=== PATIENT | female | born 1950 | race Caucasian/White ===

== ENCOUNTER 2019-04-20 07:00 | Emergency (ER) | payer MEDICARE, OTHER ==
[~2019-04-20] VITALS: Ht 170.2 cm; Wt 111.1 kg
[~2019-04-20 07:00] MED LIST: HYDR1TAB94; IBUP600; Multiple Vitam1 EAC1; SERT50 PO
[2019-04-20 07:27] LABS: BASOPHILS ABSOLUTE AUTO 0.04 K/mm3 (0.00-0.23); BASOPHILS PERCENT AUTO 1 % (0-2); EOSINOPHILS ABSOLUTE AUTO 0.14 K/mm3 (0.00-0.68); EOSINOPHILS PERCENT AUTO 3 % (0-6); Hematocrit 35.7 % (33.0-51.0); Hemoglobin 12.2 g/dL (11.5-16.0); IMMATURE GRAN ABSOLUTE AUTO 0.01 K/mm3 (0.00-0.10); IMMATURE GRAN PERCENT AUTO 0 % (0-1); LYMPHOCYTES ABSOLUTE AUTO 0.86 K/mm3 (0.84-5.20); LYMPHOCYTES PERCENT AUTO 20 % (21-46); MONOCYTES ABSOLUTE AUTO 0.53 K/mm3 (0.16-1.47); MONOCYTES PERCENT AUTO 13 % (4-13); Mean Corpuscular HGB 34.7 pg (26.0-34.0); Mean Corpuscular HGB Conc 34.2 g/dL (31.5-36.5); NEUTROPHILS ABSOLUTE AUTO 2.63 K/mm3 (1.96-9.15); NEUTROPHILS PERCENT AUTO 63 % (41-73); Platelet Count 207 K/mm3 (150-400); Red Blood Cell Count 3.52 M/mm3 (3.80-5.20); White Blood Cell Count 4.21 K/mm3 (4.00-11.30)
[2019-04-20 07:28] LABS: Mean Corpuscular Volume 101 fL (80-100)
[2019-04-20] MEDS ORDERED: Hydrochloroth12.5 MG PO (07:31)
[2019-04-20] MEDS ORDERED: LOSARTAN POTAS100 MG PO (07:31)
[2019-04-20] MEDS ORDERED: LETR2.5 PO (07:31)
[2019-04-20] MEDS ORDERED: VENL37.5ER PO (07:31)
[2019-04-20 08:02] LABS: Troponin I <0.015 ng/mL (0.000-0.040)
[2019-04-20 08:03] LABS: Alanine Aminotransfer (ALT/SGP 34 U/L (12-78); Albumin, Blood 3.8 g/dL (3.4-5.0); Albumin/Globulin Ratio 1.2 (0.8-1.8); Alk Phos 132 U/L (50-136); Anion Gap 6 mmol/L (6-16); Aspartate Aminotrans (AST/SGOT 28 U/L (12-37); Bilirubin, Total 0.9 mg/dL (0.1-1.0); Blood Urea Nitrogen 13 mg/dL (8-24); Bun/Creatinine Ratio 16.3 (12.0-20.0); CO2, Blood 28 mmol/L (21-32); Chloride, Blood 105 mmol/L (98-108); Globulin, Blood 3.3 g/dL (2.2-4.0); Glomerular Filtration Rate >60 (60-); Glucose, Blood 140 mg/dL (70-99); Potassium, Blood 3.5 mmol/L (3.5-5.5); Sodium, Blood 139 mmol/L (136-145); Total Protein, Blood 7.1 g/dL (6.4-8.2)
== END 2019-04-20 08:36 | disposition home or self-care (01) ==
LOC: ER 07:00
PROVIDERS: Emergency Medicine
DX: F41.9 Anxiety disorder, unspecified (principal); R07.89 Other chest pain; Z79.899 Other long term (current) drug therapy; Z85.3 Personal history of malignant neoplasm of breast
CPT/HCPCS: 36415; 71046; 80053; 84484; 85025; 93005; 93010; 99285-25

== ENCOUNTER → 2020-11-14 | Outpatient (CLI) | payer MEDICARE, OTHER ==
[~2020-11-14] MED LIST changes: +ACET500; +ARIP10 PO; +HYDCHL25 PO; +Hydrochloroth12.5 MG PO; +LETR2.5 PO; +LOSA50 PO; +LOSARTAN POTAS100 MG PO; +MONT10T PO; +OMEP20ER PO; +ONDA4ODT MM; +SULFAMETHOXAZO1 EAC1 PO; +SULTRIDS PO; +VENL150ER PO; +VENL37.5ER PO; +VENL75ER PO
== END | disposition home or self-care (01) ==
LOC: LAB 11:30 → LAB SHORT 11:30
DX: R10.9 Unspecified abdominal pain (principal)
CPT/HCPCS: 87086

== ENCOUNTER 2020-11-20 14:59 | Inpatient (IN) | payer MEDICARE, OTHER ==
[~2020-11-20] VITALS: Ht 170.2 cm; Wt 119.6 kg
[~2020-11-20 14:59] MED LIST changes: -ACET500; -ARIP10 PO; -HYDCHL25 PO; -LOSA50 PO; -MONT10T PO; -OMEP20ER PO; -ONDA4ODT MM; -SULFAMETHOXAZO1 EAC1 PO; -SULTRIDS PO; -VENL150ER PO; -VENL75ER PO
[2020-11-20 16:06] LABS: BASOPHILS ABSOLUTE AUTO 0.03 K/mm3 (0.00-0.23); BASOPHILS PERCENT AUTO 0 % (0-2); EOSINOPHILS ABSOLUTE AUTO 0.16 K/mm3 (0.00-0.68); EOSINOPHILS PERCENT AUTO 1 % (0-6); Hematocrit 35.5 % (33.0-51.0); Hemoglobin 12.7 g/dL (11.5-16.0); IMMATURE GRAN ABSOLUTE AUTO 0.14 K/mm3 (0.00-0.10); IMMATURE GRAN PERCENT AUTO 1 % (0-1); LYMPHOCYTES ABSOLUTE AUTO 0.25 K/mm3 (0.84-5.20); LYMPHOCYTES PERCENT AUTO 2 % (21-46); MONOCYTES ABSOLUTE AUTO 1.13 K/mm3 (0.16-1.47); MONOCYTES PERCENT AUTO 8 % (4-13); Mean Corpuscular HGB 32.1 pg (26.0-34.0); Mean Corpuscular HGB Conc 35.8 g/dL (31.5-36.5); Mean Corpuscular Volume 90 fL (80-100); Mean Platelet Volume 10.6 fL (9.1-12.4); NEUTROPHILS ABSOLUTE AUTO 13.45 K/mm3 (1.96-9.15); NEUTROPHILS PERCENT AUTO 89 % (41-73); Platelet Count 231 K/mm3 (150-400); RDW Coefficient Variation 15.9 % (11.7-14.2); Red Blood Cell Count 3.96 M/mm3 (3.80-5.20); White Blood Cell Count 15.16 K/mm3 (4.00-11.30)
[2020-11-20] MEDS ORDERED: OMEP20ER PO (16:06)
[2020-11-20] MEDS ORDERED: ONDA4ODT MM (16:06)
[2020-11-20] MEDS ORDERED: VENL75ER PO (16:06)
[2020-11-20] MEDS ORDERED: HYDCHL25 PO (16:07)
[2020-11-20] MEDS ORDERED: LOSA50 PO (16:08)
[2020-11-20] MEDS ORDERED: ACET500 (16:08)
[2020-11-20] MEDS ORDERED: SULTRIDS PO (16:09)
[2020-11-20] MEDS ORDERED: VENL150ER PO (16:09)
[2020-11-20] MEDS ORDERED: MONT10T PO (16:11)
[2020-11-20 16:41] LABS: Source, Urine Voided
[2020-11-20 16:43] LABS: Albumin, Blood 2.3 g/dL (3.4-5.0); Albumin/Globulin Ratio 0.7 (0.8-1.8); Bun/Creatinine Ratio 13.2 (12.0-20.0); Calcium, Blood 6.4 mg/dL (8.5-10.1); Creatinine, Blood 5.46 mg/dL (0.40-1.00); Globulin, Blood 3.4 g/dL (2.2-4.0); Total Protein, Blood 5.7 g/dL (6.4-8.2)
[2020-11-20 16:47] LABS: Magnesium, Blood 2.5 mg/dL (1.6-2.4); Troponin I 0.022 ng/mL (0.000-0.040)
[2020-11-20 16:50] LABS: Thyroid Stimulating Hormone 2.32 uIU/mL (0.360-4.800)
[2020-11-20 16:52] LABS: Appearance, Urine Hazy (Clear); Blood, Urine 3+ (Neg); Color, Urine Amber (P-Yellow); Glucose Qualitative, Urine 1+ (Neg); Ketones, Urine 1+ (Neg); Leukocyte Esterase, Urine 1+ (Neg); Nitrite, Urine Pos (Neg); Protein, Urine 3+ (Neg); Specific Gravity, Urine 1.025 (1.003-1.022); Urobilinogen, Urine 3+ (Normal)
[2020-11-20 17:13] LABS: Bilirubin, Urine 2+ (Neg)
[2020-11-20 17:16] LABS: Bacteria Mod /hpf; Hyaline Casts 0-2 /lpf (0-2); Squamous Epithelial Cells Mod /hpf (Few)
[2020-11-20 17:17] LABS: Amorphous Light (0-Heavy)
[2020-11-20 18:19] LABS: International Normalized Ratio 1.98; Prothrombin Time Results 20.4 Sec (9.7-11.5)
[2020-11-20 18:34] LABS: Influenza A, PCR NEGATIVE (NEGATIVE); Influenza B, PCR NEGATIVE (NEGATIVE); Resp Syncytial Virus, PCR NEGATIVE (NEGATIVE); SARS-Cov-2 (COVID-19) PCR, MMC NEGATIVE (NEGATIVE)
--- NOTE | 2020-11-20 19:00 | NUR ---
ADMIT/ASSESSMENT PT ARRIVED FROM ER VIA GURNEY. TRANSFERED BY STAFF WITH SLIDER SHEET TO BED. PT AWAKE, A&O. FORGETFUL AT TIMES. SPEECH CLEAR AND APPROP. SONS TO BEDSIDE. LUNGS CLEAR BUT DECREASED ON 3 LITER VIA NC. RESP EVEN AND NONLABORED. DENIES COUGH. SOB NOTED WITH SPEECH AND MOVEMENT. HEART RATE REGULAR IN THE 80'S. PT ON LEVOPHED ON STANDBY AT THIS TIME. BT+ HYPOACTIVE. DENIES N/V. 1+ EDEMA TO BILAT LOWER EXT. MEDIPORT TO RIGHT CHEST FLUSHED WITHOUT DIFFICULTY. D5 WITH NA BICARB AT 100 ML/HR.
[2020-11-20] MEDS ORDERED: SULFAMETHOXAZO1 EAC1 PO (19:28)
[2020-11-20] MEDS ORDERED: ARIP10 PO (19:29)
--- NOTE | 2020-11-20 20:25 | NUR ---
LABS LACTIC ACID 7.2, DR PAINTING NOTIFIED AT THIS TIME NO NEW ORDERS.
[2020-11-20 22:06] LABS: Source, Urine Catheter
--- NOTE | 2020-11-20 22:07 | NUR ---
BALL CATH BLADDER SCAN DONE, 348 ML IN BLADDER. PT TRIED TO USE BEDPAN WITHOUT RESULTS. TEMP BALL CATH 16 FR PLACED. NIKIA/TEA COLORED URINE DRAINING. URINE SENT TO LAB.
[2020-11-20 22:15] LABS: Appearance, Urine Hazy (Clear); Blood, Urine 4+ (Neg); Color, Urine Amber (P-Yellow); Glucose Qualitative, Urine 2+ (Neg); Ketones, Urine 1+ (Neg); Leukocyte Esterase, Urine 1+ (Neg); Nitrite, Urine Pos (Neg); Protein, Urine 3+ (Neg); Specific Gravity, Urine 1.025 (1.003-1.022); Urobilinogen, Urine 3+ (Normal)
[2020-11-20 22:23] LABS: Bilirubin, Urine 2+ (Neg)
[2020-11-20 22:24] LABS: Bacteria Mod /hpf; Mucus Mod (0-Heavy); Red Blood Cells, Urine 0-2 /hpf (0-2); Squamous Epithelial Cells Few /hpf (Few)
[2020-11-20 22:25] LABS: Transitional Epithelial Cells Few /hpf (0-Rare)
--- NOTE | 2020-11-21 02:45 | NUR ---
CALL TO MD CALL TO DR CERDA DUE TO POOR URINE OUTPUT 129ML SINCE 2199. NO ORDERS AT THIS TIME. WILL DRAW AM LABS AT THIS TIME AND CALL WITH RESULTS.
[2020-11-21 03:01] LABS: Hematocrit 32.9 % (33.0-51.0); Hemoglobin 11.8 g/dL (11.5-16.0); Mean Corpuscular HGB 31.6 pg (26.0-34.0); Mean Corpuscular HGB Conc 35.9 g/dL (31.5-36.5); Mean Corpuscular Volume 88 fL (80-100); Mean Platelet Volume 10.4 fL (9.1-12.4); NRBC ABSOLUTE 0.02 K/mm3 (0.00-0.02); NRBC Auto 0.1 /100 WBC (0.0-0.2); Platelet Count 194 K/mm3 (150-400); RDW Coefficient Variation 15.5 % (11.7-14.2); RDW Standard Deviation 48.5 fL (35.1-46.3); Red Blood Cell Count 3.73 M/mm3 (3.80-5.20); White Blood Cell Count 22.04 K/mm3 (4.00-11.30)
[2020-11-21 03:19] LABS: BAND PERCENT MAN 26 % (0-8); BASOPHILS ABSOLUTE MAN 0.22 K/mm3 (0.00-0.23); BASOPHILS PERCENT MAN 1 % (0-2); EOSINOPHILS ABSOLUTE MAN 0.66 K/mm3 (0.00-0.68); EOSINOPHILS PERCENT MAN 3 % (0-6); LYMPHOCYTES ABSOLUTE MAN 0.44 K/mm3 (0.84-5.20); LYMPHOCYTES PERCENT MAN 2 % (21-46); MONOCYTES ABSOLUTE MAN 0.44 K/mm3 (0.16-1.47); MONOCYTES PERCENT MAN 2 % (4-13); NEUTROPHILS ABSOLUTE MAN 20.27 K/mm3 (1.96-9.15); SEG NEUTROPHILS PERCENT MAN 66 % (41-73); TOTAL CELLS COUNTED 100
[2020-11-21 03:36] LABS: Albumin, Blood 2.5 g/dL (3.4-5.0); Albumin/Globulin Ratio 0.8 (0.8-1.8); Bilirubin, Total 2.2 mg/dL (0.1-1.0); Bun/Creatinine Ratio 12.6 (12.0-20.0); Calcium, Blood 5.6 mg/dL (8.5-10.1); Creatinine, Blood 5.49 mg/dL (0.40-1.00); Potassium, Blood 3.8 mmol/L (3.5-5.5); Total Protein, Blood 5.5 g/dL (6.4-8.2)
--- NOTE | 2020-11-21 03:47 | NUR ---
CALL TO MD CALL TO DR CERDA WITH AM LABS, CA CRITICAL AT 5.6. CONT NO URINE OUTPUT REVIEWED WITH DR CERDA. ORDERS OBTAINED.
--- NOTE | 2020-11-21 04:35 | NUR ---
IV MEDS NS 500 ML FLUID BOLUS COMPLETE. MIRLANDE GLUCONATE INFUSING. NA BICARB RESTARTED AFTER BOLUS COMPLETE. PT RESTING QUIETLY.
--- NOTE | 2020-11-21 05:52 | NUR ---
SHIFT SUMMARY PT RESTING QUIETLY. LEVOPHED UP TO 8 MCQ/MIN TO KEEP MAP GREATER THAN 65. FLUID BOLUS GIVEN FOR POOR URINE OUTPUT. CALCIUM GLUCONATE GIVE FOR CRITICAL CALCIUM OF 5.6. LACTIC ACID DOWN TO 3.6. REVIEWED LABS WITH DR CERDA. WILL REDRAW BMP AT 0700. PT ON 3 LITER O2 VIA NC. BALL CATH PLACED DURING THE NIGHT DUE TO RETENSION AND NEED TO HAVE STRICT I&O. REPORT TO ON COMING NURSE
--- NOTE | 2020-11-21 07:27 | NUR ---
ASSUMED CARE: PT RESTING IN BED ON 3LNC. NSR ON TELE WITH LEVOPHED GTT RUNNING THROUGH [employer] AT 8MCG/MIN. BICARB GTT RUNNING AT THIS TIME. BALL IN PLACE WITH TEA COLORED URINE. NO ACUTE NEEDS AT THIS TIME.
[2020-11-21 09:15] LABS: Bun/Creatinine Ratio 12.5 (12.0-20.0); Creatinine, Blood 5.59 mg/dL (0.40-1.00); Potassium, Blood 3.4 mmol/L (3.5-5.5)
[2020-11-21 09:19] LABS: Calcium, Blood 5.7 mg/dL (8.5-10.1)
--- NOTE | 2020-11-21 09:35 | NUR ---
PATIENT CALLED STAFF INTO ROOM FOR REPOSITIONING AND RASH TO FACE AND NECK WAS NOTED TO BE WORSE. PT ALSO SOUNDS LIKE SHE HAS A WHEEZE IN UPPER AIRWAY. CALL TO DR ESPINOSA WHO INSTRUCTS FOR BENADRYL AND SOLUMEDROL. DOES NOT INSTRUCT TO HOLD DOSES OF ABX OR ANY OTHER MEDS BUT TO OBSERVE FURTHER
--- NOTE | 2020-11-21 12:11 | NUR ---
DR ESPINOSA CAME AND SPOKE WITH DR RODRIGUEZ ABOUT PT. DR RODRIGUEZ DID BEDSIDE EXAMINATION AND FOUND PT'S LEFT LEG TO BE SHINY AND SLIGHTLY MORE SWOLLEN THAN LEFT. GIVEN PT'S CANCER HISTORY DR RODRIGUEZ ORDERED VENOUS DOPPLERS. TECH AT BEDSIDE PERFORMING DOPPLERS AT THIS TIME. INSTRUCTED RN TO ADD ROCEPHIN AND LATEX TO PT'S ALLERGIES AFTER REVIEWING CHART. NO ACUTE NEEDS AT THIS TIME.
--- NOTE | 2020-11-21 13:14 | NUR ---
RADIOLOGY CALLED STATING PT'S CREATININE WAS TOO HIGH TO SAFELY PERFORM PE STUDY. CALL TO DR ESPINOSA TO MAKE HIM AWARE. SPOKE WITH DR RODRIGUEZ WHO ORDERS NEPHROLOGY. WILL CALL NEPHROLOGY WHEN THEY REOPEN THIS AFTERNOON.
--- NOTE | 2020-11-21 14:30 | NUR ---
PT'S SON ARRIVED AND WAS GIVEN UPDATE. DR RODRIGUEZ ENTERED ROOM AND SPOKE TO HIM WELL. MADE DR RODRIGUEZ AWARE OF PT'S RESPONSIVENESS TO FLUIDS INCLUDING URINE OUTPUT. DR INSTRUCTED FOR SECOND LITER BOLUS TO BE GIVEN WHICH IS INFUSING NOW. SON AND PT HAVE NO FURTHER QUESTIONS AT THIS TIME.
[2020-11-21 16:10] LABS: Magnesium, Blood 2.2 mg/dL (1.6-2.4); Uric Acid, Blood 15.3 mg/dL (2.6-6.0)
[2020-11-21 17:01] LABS: Bun/Creatinine Ratio 12.7 (12.0-20.0); Calcium, Blood 5.7 mg/dL (8.5-10.1); Creatinine, Blood 5.44 mg/dL (0.40-1.00); Phosphorus, Blood 5.9 mg/dL (2.5-4.9); Potassium, Blood 3.8 mmol/L (3.5-5.5)
--- NOTE | 2020-11-21 18:11 | NUR ---
Per admit trigger, I met with Viri to offer information about ACP. She told me she already has a completed advanced directive. She appeared quite tired and politely dismissive. I will remain available.
--- NOTE | 2020-11-21 18:48 | NUR ---
PT CALLED STAFF INTO ROOM FOR INCREASED ITCHING. UPON FURTHER EXAMINATION IT WAS NOTED THAT PT'S RASH TO HEAD AND NECK HAD GOTTEN WORSE, BRIGHTER RED, MORE HIVES AND REDNESS SPREAD TO ARMS. SPOKE WITH DR RODRIGUEZ WHO INSTRUCTED TO EXAMINE EQUIPMENT FOR LATEX DUE TO ALLERGY. BALL NOTED TO HAVE LATEX PER PACKAGING. NO REDNESS TO GROIN OR LEGS BUT BALL CHANGED TO LATEX FREE CATHETER. PT WAS LAYING FLAT FOR PROCEDURE AND WHEN HEAD WAS RAISED SHE SAID SHE FELT SHORT OF BREATH. RAISED HEAD OF BEAD INTO HIGH FOWLERS. SPOKE WITH DR RODRIGUEZ WHO REEXAMINED. LEVOPHED AT 3MCG/MIN AT THIS TIME. NC AT 4L AT THIS TIME.
--- NOTE | 2020-11-21 20:00 | NUR ---
ASSUMED CARE: PT IS ALERT, SOFT SPEECH W LIMITED VERBAL RESPONSE. PT ASKS FOR ICE WATER IT IS SOOTHING TO HER THROAT, STATES THAT HER THROAT IS SORE AND HAS BEEN FOR A WHILE. LEVOPHED INCREASED, SEE FLOW SHEET. CONT W VERY MINIMAL URINE OUTPUT, WILL SEND SPECIMIN WHEN ENOUGH VOLUME. 4L NC, RR SL INCREASED, DENIES SOB, PAIN OR NAUSEA. STATES SHE ONLY HAS PAIN WHEN CLIMBING HER STAIRS, IN HER ABDOMEN. PT HAS GENERALISED "PUFFY" APPEARANCE, 2+ EDEMA OF LOWER EXTREM, HANDS LACKING SOME FINE MOTOR CONTROL, ABLE TO HOLD WATER CUP, BUT W SL DIFF RETURNING TO TRAY.
[2020-11-21 21:35] LABS: Source, Urine Catheter
[2020-11-21 21:45] LABS: Appearance, Urine Cloudy (Clear); Blood, Urine 5+ (Neg); Color, Urine Amber (P-Yellow); Glucose Qualitative, Urine 2+ (Neg); Ketones, Urine 1+ (Neg); Leukocyte Esterase, Urine 2+ (Neg); Nitrite, Urine Pos (Neg); Protein, Urine 3+ (Neg); Specific Gravity, Urine 1.025 (1.003-1.022); Urobilinogen, Urine 3+ (Normal)
[2020-11-21 21:50] LABS: Bilirubin, Urine 2+ (Neg)
[2020-11-21 21:51] LABS: Amorphous Heavy (0-Heavy); Bacteria Mod /hpf; Squamous Epithelial Cells Mod /hpf (Few); Transitional Epithelial Cells Few /hpf (0-Rare)
--- NOTE | 2020-11-22 01:00 | NUR ---
SEE CC FLOWSHEET: VASOPRESSIN ADDED APPROX 2100, LEVO HAS BEEN TIREATED TO 3MCG. DR RODRIGUEZ ALSO ORDERED MYCELEX TR, PT NOTED W WHITE PATCHES AT BACK OF THROAT. PT WAS EARLIER MED W BENADRYL FOR HIVES AND ITCHING, IMPROVED AT THIS TIME.
[2020-11-22 05:05] LABS: BASOPHILS ABSOLUTE AUTO 0.09 K/mm3 (0.00-0.23); BASOPHILS PERCENT AUTO 0 % (0-2); Hematocrit 34.6 % (33.0-51.0); Hemoglobin 12.6 g/dL (11.5-16.0); LYMPHOCYTES PERCENT AUTO 1 % (21-46); MONOCYTES ABSOLUTE AUTO 0.54 K/mm3 (0.16-1.47); MONOCYTES PERCENT AUTO 2 % (4-13); Mean Corpuscular HGB Conc 36.4 g/dL (31.5-36.5); Mean Corpuscular Volume 88 fL (80-100); Mean Platelet Volume 10.3 fL (9.1-12.4); NRBC ABSOLUTE 0.06 K/mm3 (0.00-0.02); NRBC Auto 0.2 /100 WBC (0.0-0.2); Platelet Count 191 K/mm3 (150-400); RDW Coefficient Variation 15.9 % (11.7-14.2); RDW Standard Deviation 48.3 fL (35.1-46.3); Red Blood Cell Count 3.94 M/mm3 (3.80-5.20); White Blood Cell Count 27.72 K/mm3 (4.00-11.30)
[2020-11-22 05:06] LABS: EOSINOPHILS ABSOLUTE AUTO 0.09 K/mm3 (0.00-0.68); EOSINOPHILS PERCENT AUTO 0 % (0-6); IMMATURE GRAN ABSOLUTE AUTO 0.43 K/mm3 (0.00-0.10); IMMATURE GRAN PERCENT AUTO 2 % (0-1); NEUTROPHILS ABSOLUTE AUTO 26.17 K/mm3 (1.96-9.15); NEUTROPHILS PERCENT AUTO 95 % (41-73)
[2020-11-22 05:30] LABS: BAND PERCENT MAN 22 % (0-8); BASOPHILS PERCENT MAN 0 % (0-2); EOSINOPHILS ABSOLUTE MAN 0.55 K/mm3 (0.00-0.68); EOSINOPHILS PERCENT MAN 2 % (0-6); MONOCYTES PERCENT MAN 0 % (4-13); NEUTROPHILS ABSOLUTE MAN 27.16 K/mm3 (1.96-9.15); SEG NEUTROPHILS PERCENT MAN 76 % (41-73); TOTAL CELLS COUNTED 100
[2020-11-22 05:45] LABS: Magnesium, Blood 2.1 mg/dL (1.6-2.4); Thyroid Stimulating Hormone 0.802 uIU/mL (0.360-4.800)
[2020-11-22 05:48] LABS: Albumin, Blood 2.3 g/dL (3.4-5.0); Albumin/Globulin Ratio 0.8 (0.8-1.8); Bilirubin, Total 2.4 mg/dL (0.1-1.0); Bun/Creatinine Ratio 13.3 (12.0-20.0); Calcium, Blood 5.6 mg/dL (8.5-10.1); Creatinine, Blood 5.62 mg/dL (0.40-1.00); Phosphorus, Blood 6.8 mg/dL (2.5-4.9); Potassium, Blood 3.9 mmol/L (3.5-5.5); Total Protein, Blood 5.3 g/dL (6.4-8.2)
--- NOTE | 2020-11-22 06:00 | NUR ---
PT STATES SHE HAS RESTED, BUT SEEMS TO REST W FURROWED BROW. MENTATION SEEMS SL "FOGGY", BUT W SOME CONSIDERATION, IS ABLE TO GIVE CORRECT ANSWERS. PT ASKED IF SHE WAS GOING TO MAKE IT HOME. PT SON REYNA CALLED FROM [place], STATES HE WILL BE COMING DOWN FRIDAY MORNING. SEE FLOW SHEET, CONT W LEVO AT 3MCG AND VASOPRESSIN. HAS MADE SOME URINE TONOC, BROWN. WILL REPORT TO DAYS.
--- NOTE | 2020-11-22 08:10 | NUR ---
INITIAL ASSESSMENT PATIENT RESTING QUIETLY IN BED UPON ENTERING. PATIENT ORIENTED TO SELF, [facility], FAMILY AND FOLLOWING COMMANDS. PATIENT DISORIENTED TO YEAR (THOUGHT IT WAS IN THE 1900S) AND MONTH. PATIENT UNSURE HOW TO DRINK OUT OF A STRAW THIS AM. PATIENT SEEMS TO BE HAVING DIFFICULTY WITH MAKING SENTENCES AND HAS NONSENSICAL SPEECH AT TIMES. PATIENT ANXIOUS AT TIMES. PATIENT REPORTS N/T IN EXTREMITIES SINCE SHE STARTED CHEMO. PATIENT WEAK BUT ABLE TO MOVE ALL EXTREMITIES. PATIENT AFEBRILE. PATIENT SATTING 90% AND GREATER ON 3 L NC. INSPIRATORY CRACKLES NOTED IN UPPER LUNG LOBES. LOWER LOBES DIMINISHED TO AUSCULTATION. PATIENT SOB WITH EXERTION AND EVEN WITH SPEAKING. PATIENT IN SR WITH PACS. HR 80S TO 90S. SBP 90S TO 120S. LOWER EXTREMITIES EDEMATOUS. ABDOMEN MODERATELY DISTENDED, FIRM, WITH HYPOACTIVE BS NOTED. DATE OF LAST BM UNKNOWN. PATIENT OLIGURIC. BALL DRAINING MINIMAL AMOUNT OF NIKIA COLORED URINE. RASH NOTED TO MID TRUNK UP TO NECK AND ALSO NO HEAD. PATIENT BEING REPOSITIONED Q2H AND PRN. LEVOPHED INFUSING AT 3 MCG/ MINUTE, VASOPRESSIN AT 0.04 UNITS/ MINUTE AND NS AT 125 MLS/ HOUR. BED LOW, CALL LIGHT IN REACH. WILL CONTINUE TO MONITOR PATIENT FREQUENTLY THROUGHOUT SHIFT.
--- NOTE | 2020-11-22 09:00 | NUR ---
DR. RODRIGUEZ UPDATED ON PATIENT STATUS. INFORMED THAT WBCS INCREASING, CALCIUM CRITICALLY LOW AT 5.6, PHOS INCREASED AT 6.8, AND KIDNEY LABS INCREASING. INFORMED THAT PATIENT ONLY HAD OUT 120 MLS OF URINE ON TAG MARKER. INFORMED THAT PATIENT IS CONFUSED THIS AM AND THAT PATIENT EVEN HAVING TROUBLE TRYING TO FIGURE OUT HOW TO USE STRAW TO DRINK THIS AM. DOCTOR STATED SHE WOULD PUT ORDERS IN.
--- NOTE | 2020-11-22 12:00 | NUR ---
PATIENT AFEBRILE. HR IN THE 80S. SBP 60S TO 90S. PATIENT REMAINS ON LEVOPHED AND VASOPRESSIN. NO OTHER ACUTE CHANGES TO NOTE ON AT THIS TIME. WILL CONTINUE TO MONITOR.
[2020-11-22 13:23] LABS: Base Excess Venous -10.8 mmol/L; Bicarbonate Venous 16.8 mmol/L (24.0-30.0); PCO2 Venous 28.1 mmHg (38-42); PO2 Venous 54.8 mmHg (38-42); pH Blood Venous 7.34 (7.34-7.37)
[2020-11-22 13:45] LABS: Uric Acid, Blood 15.3 mg/dL (2.6-6.0)
[2020-11-22 13:52] LABS: Albumin, Blood 2.4 g/dL (3.4-5.0); Anion Gap 17 mmol/L (6-16); Blood Urea Nitrogen 76 mg/dL (8-24); Bun/Creatinine Ratio 13.2 (12.0-20.0); CO2, Blood 15 mmol/L (21-32); Calcium, Blood 5.7 mg/dL (8.5-10.1); Chloride, Blood 101 mmol/L (98-108); Creatinine, Blood 5.74 mg/dL (0.40-1.00); Glomerular Filtration Rate 8 (60-); Glucose, Blood 147 mg/dL (70-99); Potassium, Blood 3.9 mmol/L (3.5-5.5); Sodium, Blood 133 mmol/L (136-145)
--- NOTE | 2020-11-22 14:50 | NUR ---
DR. GONG INFORMED OF CALCIUM AND REST OF RECENT LABS. INFORMED THAT PATIENT HAS ONLY HAD OUT 20 TO 40 CC OF URINE OUTPUT. ORDER RECEIVED FOR CALCIUM CHLORIDE.
--- NOTE | 2020-11-22 16:00 | NUR ---
PATIENT AFEBRILE. HR 80S TO 90S. SBP 80S TO LOW 100S. RASH IS GETTING WORSE. SON IN ROOM VISITING.
--- NOTE | 2020-11-22 16:45 | NUR ---
DR. RODRIGUEZ INFORMED THAT PATIENT HAS ONLY HAD 30 MLS OF URINE OUTPUT THIS SHIFT. ALSO INFORMED THAT RASH APPEARS TO BE GROWING. ORDER RECEIVED.
--- NOTE | 2020-11-22 16:46 | NUR ---
LEFT A MESSAGE ON DR. GONG'S PHONE TO INFORM HER OF PATIENT SCANT URINE OUTPUT. WILL WAIT FOR A RETURN CALL.
--- NOTE | 2020-11-22 18:06 | NUR ---
SPOKE WITH DR. GONG ABOUT URINE OUTPUT. INFORMED THAT BLADDER SCAN SHOWED 845 MLS OF URINE IN BLADDER. HOWEVER, INFORMED THAT ON ABD CT PATIENT HAD ASCITES NOTED. INFORMED THAT BALL IS FLUSHING WITH NO PROBLEM. NO FURTHER ORDERS RECEIVED.
--- NOTE | 2020-11-22 18:10 | NUR ---
DENNIS STEWART FLUSHED BALL CATHETER WITH 150 MLS OF NORMAL SALINE AND ALL 150 MLS WAS RETURNED WITHOUT DIFFICULTY.
--- NOTE | 2020-11-22 19:00 | NUR ---
ASSUMED CARE NOTE: ASSUMED CARE NOTE OF PT AT 1900, RECEVIED REPORT FROM BRET COLLINS. PT IS ALERT AND ORIENTED TO SELF, ABLE TO FOLLOW COMMANDS. PT IS CONFUSED, UNABLE TO STATE PLACE, TIME, EVENT OR RECALL RECENT/REMOTE EVENTS. PT IS ON 2L OF 02 VIA NC, SPO2 ABOVE 90% PT IS SR WITH HR IN THE 80S. PT ON LEVOPHED AT VASOPRESSIN TO MAINTAIN MAP ABOVE 65. PT IS EDEMATOUS T/O. RASH/REDNESS TO HEAD/CHEST/BACK/ UPPER ARMS NOTED. RED BLOTCHES TO ABDOMEN AND BUTTOCKS NOTED. BALL PATENT AND DRAINING TO GRAVITY, NIKIA COLOR URINE NOTED. WILL CONTINUE TO MONITOR PT T.O SHIFT.
--- NOTE | 2020-11-22 19:05 | NUR ---
Met with patient to reivew symptoms and spend theraputic time. Pt confussed and difficulty tracking conversation. She denies headache. yes to tight breathing but unable to express how it feels. denies nausea or pain. Physician want to be judicous with more sedatives. Mak is to continue treamtent and see response. Family in tomorrow with review code status.
--- NOTE | 2020-11-22 19:29 | NUR ---
SHIFT SUMMARY PATIENT REMAINED VERY CONFUSED THIS SHIFT. PATIENT HAD NONSENSICAL SPEECH AT TIMES. PATIENT REMAINED AFEBRILE. PATIENT REMAINED WEAK. PATIENT REMAINED SATTING 90% AND GREATER ON 3 L NC. PATIENT SOB WITH EXERTION, INCLUDING WITH TALKING AND WITH INCREASED ANXIETY. PATIENT REMAINED IN SR WITH PACS. HR 80S TO 90S. SBP 80S TO 120S. PATIENT HAD 500 CC NS BOLUS THIS SHIFT. BP LABILE ON PRESSORS. LEVOPHED REMAINED AT 3 MCG/ MINUTE. MAPS AROUND 80S WHEN ON VASOPRESSIN AND 40S TO 50S OFF OF VASOPRESSIN. NO BM THIS SHIFT. PATIENT PLACED ON PUREE DIET WITH NECTAR THICK LIQUIDS BY SPEECH THERAPY. PATIENT ONLY HAD 35 MLS OF NIKIA COLORED URINE OUT THIS SHIFT. DR. RODRIGUEZ AND DR. GONG BOTH AWARE. RASH INCREASED IN SIZE THIS SHIFT. AREAS ARE OUTLINED WITH MARKER. PATIENT HAD HEAD CT THIS SHIFT. PATIENT RECEIVED CALCIUM CHLORIDE REPLACEMENT FOR CRITICALLY LOW CALCIUM. HEPARIN AND CIPRO DC'D THIS SHIFT IN CASE THEY ARE POTENTIAL CAUSE OF RASH. FAMILY, DOCTOR, PRIMARY CARE NURSE AND PALLIATIVE CARE NURSE TO HAVE MEETING IN PATIENT ROOM AT 1400 TOMORROW TO DISCUSS FUTURE CARE. PATIENT APPEARS WITHOUT PAIN OR DISTRESS AT THIS TIME. BED LOW, CALL LIGHT IN REACH. REPORT HAS BEEN GIVEN TO ASSUMING CHIPPER FEEDER NURSE.
[2020-11-22 23:20] LABS: Source, Urine Catheter
[2020-11-22 23:25] LABS: Appearance, Urine Cloudy (Clear); Blood, Urine 5+ (Neg); Color, Urine Amber (P-Yellow); Glucose Qualitative, Urine 1+ (Neg); Ketones, Urine 2+ (Neg); Leukocyte Esterase, Urine 3+ (Neg); Nitrite, Urine Pos (Neg); Protein, Urine 3+ (Neg); Specific Gravity, Urine 1.025 (1.003-1.022); Urobilinogen, Urine 3+ (Normal)
[2020-11-22 23:26] LABS: Bilirubin, Urine 2+ (Neg)
[2020-11-22 23:31] LABS: White Blood Cells, Urine 25-50 /hpf (0-5)
[2020-11-22 23:32] LABS: Amorphous Light (0-Heavy); Bacteria Many /hpf; Squamous Epithelial Cells Few /hpf (Few); Yeast/Fungi Urine Mod /hpf
[2020-11-22 23:33] LABS: Granular Casts 0-2 /lpf (0); Transitional Epithelial Cells Few /hpf (0-Rare)
[2020-11-23 03:50] LABS: Hematocrit 32.7 % (33.0-51.0); Hemoglobin 11.9 g/dL (11.5-16.0); Mean Corpuscular HGB 32.2 pg (26.0-34.0); Mean Corpuscular HGB Conc 36.4 g/dL (31.5-36.5); Mean Corpuscular Volume 89 fL (80-100); Mean Platelet Volume 10.4 fL (9.1-12.4); NRBC ABSOLUTE 0.11 K/mm3 (0.00-0.02); NRBC Auto 0.4 /100 WBC (0.0-0.2); Platelet Count 182 K/mm3 (150-400); RDW Coefficient Variation 15.9 % (11.7-14.2); Red Blood Cell Count 3.69 M/mm3 (3.80-5.20); White Blood Cell Count 26.98 K/mm3 (4.00-11.30)
[2020-11-23 04:21] LABS: Alanine Aminotransfer (ALT/SGP 562 U/L (12-78); Albumin, Blood 2.3 g/dL (3.4-5.0); Albumin/Globulin Ratio 0.8 (0.8-1.8); Alk Phos 467 U/L (50-136); Anion Gap 15 mmol/L (6-16); Aspartate Aminotrans (AST/SGOT 531 U/L (12-37); Bilirubin, Direct 2.3 mg/dL (0.0-0.3); Bilirubin, Indirect 0.8 mg/dL (0.1-0.7); Bilirubin, Total 3.1 mg/dL (0.1-1.0); Blood Urea Nitrogen 86 mg/dL (8-24); Bun/Creatinine Ratio 14.2 (12.0-20.0); CO2, Blood 16 mmol/L (21-32); Calcium, Blood 6.4 mg/dL (8.5-10.1); Chloride, Blood 104 mmol/L (98-108); Creatinine, Blood 6.06 mg/dL (0.40-1.00); Globulin, Blood 2.9 g/dL (2.2-4.0); Glomerular Filtration Rate 7 (60-); Glucose, Blood 119 mg/dL (70-99); Magnesium, Blood 2.1 mg/dL (1.6-2.4); Phosphorus, Blood 7.4 mg/dL (2.5-4.9); Potassium, Blood 3.9 mmol/L (3.5-5.5); Sodium, Blood 135 mmol/L (136-145); Total Protein, Blood 5.2 g/dL (6.4-8.2); Uric Acid, Blood 15.1 mg/dL (2.6-6.0)
[2020-11-23 04:27] LABS: CPK Creatine Kinase 1431 U/L (26-193)
[2020-11-23 05:38] LABS: BAND PERCENT MAN 19 % (0-8); BASOPHILS ABSOLUTE MAN 0.26 K/mm3 (0.00-0.23); BASOPHILS PERCENT MAN 1 % (0-2); EOSINOPHILS PERCENT MAN 0 % (0-6); LYMPHOCYTES ABSOLUTE MAN 0.26 K/mm3 (0.84-5.20); LYMPHOCYTES PERCENT MAN 1 % (21-46); MONOCYTES ABSOLUTE MAN 0.26 K/mm3 (0.16-1.47); MONOCYTES PERCENT MAN 1 % (4-13); NEUTROPHILS ABSOLUTE MAN 26.17 K/mm3 (1.96-9.15); SEG NEUTROPHILS PERCENT MAN 78 % (41-73); TOTAL CELLS COUNTED 100
--- NOTE | 2020-11-23 06:11 | NUR ---
SHIFT SUMMARY : PT IS ALERT AND ORIENTED TO SELF. CONTINUES TO BE CONFUSED, HOWEVER IS REDIRECTABLE. PT RASH HAS IMPROVED, LESS REDNESS NOTED AFTER BENADRYL. PT RECEVIED ONCE TREATMENT OF ALBUTEROL FROM WHEEZING IN THE LOWER BASES. PT RR WITH INCREASE WITH AGITATION. PT IS UNABLE TO GET COMFORTABLE AND WILL BEGIN TO SCRATCH, SHE NEEDS TO BE REMINDED NOT TO SCRATCH RASH. ONCE SETTLED PT RR GOES BACK TO NORMAL. PT ON RA WITH SPO2 ABOVE 90% PT HAS BLISTERS IN MOUTH AND WHITE PATCHES. PT IS GIVEN ORAL CARE NEEDED, HOWEVER SHE WILL FIGHT CARE, C/O PAIN. PT HAS BEEN OFF/ON LEVOPHED AND VASOPRESSIN T/O NIGHT. PT HAS BEEN IN NSR WITH HR IN THE 90'S . BALL PATENT, DRAINING NIKIA COLORED URINE, UA SENT TO LAB, CATH CARE PROVIDED. WILL CONTINUE TO MONITOR PT UNTIL REPORT IS GIVEN TO ONCOMING SHIFT.
--- NOTE | 2020-11-23 08:10 | NUR ---
INITIAL ASSESSMENT PATIENT CONFUSED THIS AM. PATIENT HAS NONSENSICAL SPEECH. PATIENT ANXIOUS. PATIENT IS ABLE TO FOLLOW SOME SIMPLE COMMANDS ON AND OFF. PATIENT AFEBRILE. PATIENT DENIES PAIN AT THIS TIME. SCLERA REDDENED. PATIENT WEAK BUT ABLE TO MOVE ALL EXTREMITIES. PATIENT HAS INCREASE IN INVOLUNTARY MUSCLE MOVEMENTS FROM YESTERDAY. PATIENT SATTING 90% AND GREATER ON 3 L NC. CRACKLES NOTED IN LLL; ALL OTHER LUNG LOBES DIMINISHED THROUGHOUT. SOB NOTED WITH EXERTION. BREATHING LABORED. RRS 20S TO 30S. PATIENT IN SR WITH PACS. HR IN THE 90S. SBP 90S TO 150S. PATIENT RECEIVING SCHEDULED MIDODRINE. PATIENT EDEMATOUS. SCDS IN PLACE. ABD FIRM, MODERATELY DISTENDED, HYPOACTIVE BS NOTED. DATE OF LAST BM UNKNOWN. PATIENT OLIGURIC. SCANT AMOUNT OF NIKIA COLORED URINE DRAINING FROM BALL; SEDIMENT NOTED. RASH SCATTERED FROM TOP OF THIGHS ON BACKSIDE TO TOP OF HEAD. RASH DISTAL TO ELBOWS AND UP ARM. RASH JUST BELOW NIPPLE LINE AND EXTENDS UP NECK AND FACE. FACE FLUSHED. LEVOPHED AT 3 MCG/ MINUTE. VASOPRESSIN ON SB AT THIS TIME. NS AT 125 MLS/ HOUR. BED LOW, CALL LIGHT IN REACH. WILL CONTINUE TO MONITOR PATIENT FREQUENTLY THROUGHOUT SHIFT.
[2020-11-23 08:54] LABS: Vancomycin, Random 8.4 ug/mL
--- NOTE | 2020-11-23 09:00 | NUR ---
DR. RODRIGUEZ UPDATED ON PATIENT STATUS. INFORMED THAT PATIENT RECEIVED 2 G CALCIUM GLUCONATE THIS AM FOR CALCIUM LEVEL OF 6.4. INFORMED THAT KIDNEY LABS HAVE INCREASED. INFORMED THAT PATIENT HAD 150 MLS OF URINE OUT THIS SHIFT. INFORMED THAT PATIENT MORE CONFUSED TODAY THAN YESTERDAY AND THAT SHE HAS INCREASED INVOLUNTARY MOVEMENTS FROM YESTERDAY WELL. DOCTOR STATED THAT SHE WILL PLACE ORDERS.
[2020-11-23 10:18] LABS: PCO2 Arterial 26.3 mmHg (35-45); PO2 Arterial 73.3 mmHg (80-100); pH Blood Arterial 7.32 (7.35-7.45)
[2020-11-23 10:26] LABS: International Normalized Ratio 2.73; Prothrombin Time Results 27.6 Sec (9.7-11.5)
--- NOTE | 2020-11-23 13:01 | NUR ---
PATIENT AFEBRILE. PATIENT REMAINS CONFUSED. PATIENT ACCEPTED PO MIDODRINE BUT WOULD NOT OPEN MOUTH FOR MYCELEX; UNSURE WHETHER PATIENT REFUSING OR NOT UNDERSTANDING DIRECTION TO OPEN MOUTH. PATIENT REMAINS ON 3 L NC. HR 70S TO 90S. SBP 90S TO 120S. BLOOD SUGAR OF 113. PATIENT GIVEN PRN BENADRYL FOR RASH AND ITCHING. NO OTHER ACUTE CHANGES TO NOTE ON AT THIS TIME. WILL CONTINUE TO MONITOR.
--- NOTE | 2020-11-23 13:53 | NUR ---
DR. GONG IN TO SEE PATIENT. UPDATED ON STATUS. NO ORDERS RECEIVED AT THIS TIME.
--- NOTE | 2020-11-23 15:18 | NUR ---
MEETING IN PATIENT ROOM WITH PATIENT (WHO SLEPT THE WHOLE TIME), MIKA VARGAS, DR. RODRIGUEZ, PALLIATIVE CARE NURSE ALFONSO HERRERA, AND PRIMARY NURSE FROM 1400 TO 1500. FAMILY UPDATED AND QUESTIONS ANSWERED.
--- NOTE | 2020-11-23 16:00 | NUR ---
PATIENT AFEBRILE. NO SIGNS OF PAIN NOTED. PATIENT IS NO LONGER FOLLOWING ANY SIMPLE COMMANDS. PATIENT APPEARS TO BE UNABLE TO UNDERSTAND HOW TO OPEN MOUTH FOR MEDICATIONS AND SIPS. PATIENT APPEARS TO HAVE BITTEN LOWER LIP IN ONE SMALL SPOT. HR 70S TO 80S. SBP 90S TO 1-TEENS. NO OTHER ACUTE CHANGES TO NOTE ON AT THIS TIME. SONS REMAIN AT BEDSIDE. WILL CONTINUE TO MONITOR.
--- NOTE | 2020-11-23 16:43 | NUR ---
Joint supportive vist with Dr Block, Bedside RN Sandee, and this RN. Pt resting in bed with her eyes closed. Pt's sons at bedside. Dr Block provides update and discussed plan of care. Dr Block answers questions. This RN and Sandee remained behind and answered questions. Continued therapeutic listening. Answered questions regarding POA and the importance of planning for the future. Answered questions regarding caregiver support. Discussed regardless of outcome of current condition, Pt may need caregiver support when cancer reaches end stage. Continued therapeutic listening. Family expresses appreciation of visit and reports no other concerns at this time. Palliative Care will remain available for supportive and therapeutic visits.
--- NOTE | 2020-11-23 19:00 | NUR ---
ASSUMED CARE NOTE: ASSUMED CARE OF PT AT 1900, RECEVIED REPORT FROM BRET COLLINS. PT IS CONFUSED, AND AGITATED. NOT ABLE TO FOLLOW COMMANDS, VOICES SOME WORDS, MOSTLY JUST SOUNDS. UNABLE TO RECALL RECENT/REMOTE EVENTS. PT IS ON 4L OF O2 VIA NC, SPO2 ABOVE 90% RR AT 22 TO 30 WITH AGITATION. PT IS SCRATCHING SKIN, CONTINUES TO BE RED, AND RASH DOES NOT SEEM TO BE GROWING RAPIDLY. PT GIVEN BENADRYL PER ORDER. PT IN SINUS RYTHYM WITH FEW PVC'S, HR IN THE 80'S. BP STABLE. PT WILL REMAIN NPO T/O SHIFT, AND ORAL CARE WILL BE PROVIDED WITH SUCTION. BALL IS PATNET, DRAINING TO GRAVITY. WILL CONTINUE TO MONITOR PT T/O SHIFT.
--- NOTE | 2020-11-23 19:10 | NUR ---
SHIFT SUMMARY PATIENT CONFUSED THIS SHIFT. PATIENT ONLY MAKING SOUNDS WHEN TRYING TO TALK TO STAFF. PATIENT UNABLE TO FOLLOW ANY COMMANDS. PATIENT CONTINUES TO HAVE INVOLUNTARY MUSCLES SPASMS. PATIENT REMAINS WEAK. PATIENT ANXIOUS AT TIMES. PATIENT HAS REMAINED SATTING 90% AND GREATER ON 3 L NC. NONPRODUCTIVE COUGH. RRS 20S TO 40S. BREATHING LABORED AT TIMES. PATIENT REMAINED IN SR WITH PACS. HR 70S TO 90S. SBP 90S TO 150S. LEVOPHED AND VASOPRESSIN BOTH PLACED ON SB THIS SHIFT. MIDODRINE DOSE DECREASED THIS SHIFT, HOWEVER PATIENT IS NO LONGER ABLE TO TAKE PO MEDS. NO BM THIS SHIFT. BALL DRAINED 335 MLS OF NIKIA COLORED URINE WITH SEDIMENT NOTED. PATIENT RECEIVED TOTAL OF 100 MG LASIX THIS SHIFT. PATIENT REPOSITIONED THROUGHOUT SHIFT. PATIENT RECEIVED COMPLETE BEDBATH. NS REMAINS AT 125 MLS/ HOUR. PATIENT RECEIVED VANCO AND AZACTAM. BRYAN CONSULT PLACED. FAMILY MEETING IN ROOM AT 1400 WITH SONS, DOCTOR, PALLIATIVE CARE AND PRIMARY NURSE. BED LOW, CALL LIGHT IN REACH. REPORT HAS BEEN GIVEN TO ASSUMING BOARD MILL SUPERVISOR NURSE.
--- NOTE | 2020-11-23 23:54 | NUR ---
UPDATE: PT PLACED ON LEVOPHED 1MCG/MIN DUE TO LOW SBP OF 70, AND MAP OF 50.
--- NOTE | 2020-11-24 02:46 | NUR ---
CALLED REGARDING PT'S RESTLESSNESS. PT IS MOVING AROUND IN BED, MOANING. UNABLE TO REPOSTION PATIENT WITHTOUT HAVING HER RESIST OR TENSE UP. PT STRATCHING HER UPPER TORSO. ORDERS FOR ONE TIME DOSE OF FENTANYL GIVEN.
--- NOTE | 2020-11-24 03:03 | NUR ---
DC'd THE FENTANYL DUE TO LATEX ALLERGY. CALLED REGARDING CONTRAINDICATION, ORDERS FOR ONE TIME DOSE OF MORPHINE TO BE GIVEN.
[2020-11-24 03:41] LABS: BASOPHILS ABSOLUTE AUTO 0.03 K/mm3 (0.00-0.23); BASOPHILS PERCENT AUTO 0 % (0-2); EOSINOPHILS ABSOLUTE AUTO 0.03 K/mm3 (0.00-0.68); EOSINOPHILS PERCENT AUTO 0 % (0-6); Hematocrit 32.4 % (33.0-51.0); IMMATURE GRAN ABSOLUTE AUTO 0.15 K/mm3 (0.00-0.10); IMMATURE GRAN PERCENT AUTO 1 % (0-1); LYMPHOCYTES ABSOLUTE AUTO 0.68 K/mm3 (0.84-5.20); LYMPHOCYTES PERCENT AUTO 4 % (21-46); MONOCYTES ABSOLUTE AUTO 0.58 K/mm3 (0.16-1.47); MONOCYTES PERCENT AUTO 3 % (4-13); Mean Corpuscular HGB 31.7 pg (26.0-34.0); Mean Corpuscular Volume 86 fL (80-100); NEUTROPHILS ABSOLUTE AUTO 15.63 K/mm3 (1.96-9.15); NEUTROPHILS PERCENT AUTO 91 % (41-73); NRBC ABSOLUTE 0.08 K/mm3 (0.00-0.02); NRBC Auto 0.5 /100 WBC (0.0-0.2); Platelet Count 138 K/mm3 (150-400); RDW Coefficient Variation 16.5 % (11.7-14.2); RDW Standard Deviation 48.4 fL (35.1-46.3); Red Blood Cell Count 3.79 M/mm3 (3.80-5.20)
[2020-11-24 03:55] LABS: International Normalized Ratio 2.58; Prothrombin Time Results 26.2 Sec (9.7-11.5)
[2020-11-24 04:02] LABS: Anion Gap 14 mmol/L (6-16); Blood Urea Nitrogen 98 mg/dL (8-24); Bun/Creatinine Ratio 16.7 (12.0-20.0); CO2, Blood 15 mmol/L (21-32); Calcium, Blood 6.2 mg/dL (8.5-10.1); Chloride, Blood 107 mmol/L (98-108); Creatinine, Blood 5.86 mg/dL (0.40-1.00); Glomerular Filtration Rate 8 (60-); Glucose, Blood 123 mg/dL (70-99); Magnesium, Blood 2.3 mg/dL (1.6-2.4); Phosphorus, Blood 7.6 mg/dL (2.5-4.9); Potassium, Blood 3.9 mmol/L (3.5-5.5); Sodium, Blood 136 mmol/L (136-145); Vancomycin, Random 15.6 ug/mL
--- NOTE | 2020-11-24 06:08 | NUR ---
SHIFT SUMMARY: PT CONTINUES TO BE CONFUSED AND UNABLE TO FOLLOW COMMANDS. PT IS HAVING INVOLUNTARY JERKING MOVMENTS TO ALL EXTREMTIES. PT FIGHTS ORAL CARE AND WILL MOVE HEAD FROM SIDE TO SIDE. BLISTERS NOTED TO THE ORAL MUCOSA. PT IS ON 4L OF 02 VIA NC WITH SPO2 ABOVE 90% PT RR INCREASED WITH AGITATION IN THE 30'S WHILE AT REST RR IS IN THE MID TEENS TO 20. PT IS HAVING DRY-NON PRODUCTIVE COUGH OCCASSIONALLY. PT WAS ON LEVOPHED THIS SHIFT FOR A SHORT PERIOD OF TIME, DUE TO MAP BEING UNDER 65, AND SBP OF 70. PT BP HAS BEEN STABLE SINCE LEVOPHED WAS TURNED OFF. PT IN SR WITH PVC'S, HR IN THE 70-80'S. LOW URINE OUTPUT NOTED THIS SHIFT, BALL IS PATENT AND DRAINING TO GRAVITY. PT REPOSITIONED Q2HRS. RASH T/O BODY HAS NOT INCRESED. WILL CONTINUE TO MONITOR PT UNTIL REPORT IS GIVEN TO ONCOMING SHIFT.
--- NOTE | 2020-11-24 10:00 | NUR ---
AM NOTE... ASSUMED CARE OF PT AT 0700. PT HAS SEVERE ALTERED MENTAL STATUS, PT IS UNABLE TO FOLLOW COMMANDS, PT MOANS AND MAKES NONSENSICAL SOUNDS IN RESPONSE TO PAINFUL STIMULI. PT'S EXTREMITIES EXHIBIT JERKY TWITCHING MOVEMENTS. THE PT'S SKIN ON HER HEAD/FACE, UPPER TORSO AND ARMS IS RED WITH A FADING RASH NOTED FROM A PREVIOUS ALLERGIC REACTION PER NOC SHIFT RN. PT IS ON 3L NC WITH O2 SATS >90%, RR IS IN THE 20'S-30'S L/S DIM T/O WITH FINE CRACKLES NOTED IN THE LLL. PT IS IN SR W/PACs IN THE 80'S, BP STABLE. PT HAS 2+ PITTING EDEMA NOTED TO HER BLE AND 1+ TO HER BUE. BP IS CURRENTLY STABLE. ALL OF PT'S PO MEDICATIONS HELD D/T PT'S ALTERED MENTAL STATUS, PT IS NOT SAFE FOR PO INTAKE AT THIS TIME. PT IS UNABLE TO STATE HER NAME OR . PT'S BALL IS PATENT AND DRAINING DARK NIKIA URINE TO GRAVITY. PT HAS NOT HAD A CHARTED BM SINCE ADMIT. BT PRESENT AND HYPOACTIVE, ABD IS FIRM TO PALP. PT IS TO HAVE AN MRI OF THE HEAD TODAY. WILL CONTINUE TO MONITOR.
--- NOTE | 2020-11-24 15:20 | NUR ---
PT UPDATE... AT 1130 PT WAS TAKEN TO HAVE HER MRI BY THIS RN AND A MASK INSPECTOR, PT'S JERKS AND TWITCHES CONTINUED DURING THE MRI, ONCE THE MRI WAS OVER THE PT WAS TAKEN OUT OF THE MRI MACHINE AND IT WAS NOTED THAT SHE HAD A DUSKY APPEARANCE TO HER, THIS RN ATTEMPTED TO RUN INTO THE ROOM TO ASSESS THE PT BUT WAS TOLD I WAS NOT ALLOWED TO ENTER THE MRI ROOM. THE WORM PICKER BROUGHT THE PT OUT TO THIS RN WHO NOTED THAT HER RESPIRATORY RATE HAD GREATLY INCREASED, HER FACE WAS DUSKY WELL HER FINGERNAILS, PT'S O2 WAS AT 3L AND PT WAS LAYING FLAT ON THE MRI BED, THE HEAD OF THIS BED DOES NOT RAISE UP AT ALL, THIS RN INCREASED HER O2 HIGH IT WOULD GO AND CALLED FOR THE ICU TRAY DELIVERY AIDE TO COME AND ASSIST THIS RN AT THE MRI ROOM. PT WAS THEN GOTTEN BACK INTO HER BED AND THE HEAD OF THE BED WAS SAT UP, PT HAD BECOME MORE DUSKY DURING THIS TIME, IT WAS UNKNOWN WHAT HER O2 SATS/HR/BP WERE AT THIS TIME D/T ALL OF HER LEADS AND MONITORS HAVING TO HAVE BEEN REMOVED FOR THE MRI. ONCE THESE THINGS WERE BACK ON THE PT HER O2 SATS WERE >90%, BP WAS HYPERTENSIVE WITH SBP IN THE 180'S. AFTER APROX 1-2 MINS OF HER HEAD BEING UP WITH INCREASED O2 PT'S COLOR STARTED TO IMPROVE. THE ICU CHARGE NURSE ARRIVED AT MRI AND ASSISTED THIS RN IN GETTING THE PT BACK TO HER ROOM. ONCE BACK IN HER ROOM PT'S COLOR RETURNED TO HER NORMAL COLOR, RR DECREASED AND NAIL BEDS ALSO RETURNED TO NORMAL APPEARANCE. THE O2 WAS SLOWLY TITRATED DOWN TO 4L NC WITH O2 SATS>90%. WILL CONTINUE TO MONITOR.
--- NOTE | 2020-11-24 15:29 | NUR ---
PT UPDATE... PT'S SON AT THE BEDSIDE, DR. ECKERT WAS NOTIFIED OF THE SON AND THAT THE MRI RESULTS WERE IN. DR. ECKERT CAME TO THE BEDSIDE TO DISCUSS THE MRI RESULTS AND THE PLAN OF CARE WITH THE SON. PER THE SON HE WANTED TO KEEP THE PT A FULL CODE UNTIL THEY COULD MEET WITH HIS BROTHER TO DISCUSS IF THEY WANT TO CONTINUE WITH AGRESSIVE CARE OR NOT. PALLIATIVE CARE NOTIFIED OF THE FAMILY MEETING PLAN SET FOR TOMORROW 11/25 AT 1300. WILL CONTINUE TO MONITOR.
--- NOTE | 2020-11-24 18:46 | NUR ---
SHIFT SUMMARY... PT CONTINUES TO HAVE VERY JERKY/TWITCHY MOVEMENTS, IT IS ALSO NOTED THAT THE PT'S ANXIETY HAS INCREASED T/O THE SHIFT, ANY TIME THE PT IS REPOSITIONED/PULLED UP THE BED THE PT STARTS TO SQUIRM AROUND IN THE BED, RR INCREASES AND SHE BECOMES VERY RED/FLUSHED IN THE FACE AND UPPER TORSO, IT TAKES HER AT LEAST 10-15 MINS TO CALM DOWN FROM THESE INTERACTIONS. PT'S O2 SATS DROPPED TO THE LOW 90'S HIGH 80'S DURING THE 1800 REPOSITION. IT WAS ALSO NOTED THAT THE PT'S BP HAS STARTED TO TREND DOWN TO 70'S-90'S SYSTOLIC, HOWEVER HER MAPS HAVE BEEN >65 AT THIS TIME. PT'S BALL IS PATENT AND DRAINED 260MLS OF DARK NIKIA URINE. PT HAS NOT HAD A BM THIS SHIFT OR SINCE ADMIT, IT IS UNKNOWN WHEN HER LAST BM WAS, HOWEVER PT IS NPO AT THIS TIME AND FAMILY HAS A MEETING WITH DR. ECKERT AND PALLIATIVE CARE TOMORROW AT 1300 TO DISCUSS HER PLAN OF CARE OR POSSIBLE COMFORT CARE, PER DR. ECKERT IT IS OKAY TO WAIT UNTIL AFTER THE MEETING TO ESTABLISH A PLAN OF CARE IN REGARDS TO HER BOWEL CARE. PT'S SONS ARE ALSO MEETING WITH DR. GONG TOMORROW AT APROX 11 TO TALK ABOUT POSSIBLE DIALYSIS, IT IS OKAY PER PAVING RAMMER FOR BOTH SONS TO COME IN EARLY TO HAVE THESE MEETINGS. WILL CONTINUE TO MONITOR UNTIL REPORT IS GIVEN TO ONCOMING RN.
--- NOTE | 2020-11-24 21:54 | NUR ---
ASSUMED PT CARE FROM DENNIS WALLIS AT 1915 PT OBSERVED TO BE LYING IN BED WITH HI FLOW NC IN PLACE AT 4L; RESP RATE 20-30'S. PT MOANING AND GROANING. NONVERBAL AND NOT ABLE TO MAKE NEEDS KNOWN. SHE IS UNABLE TO MAKE DIRECT EYE CONTACT NOR UNDERSTAND COMMUNICATION. EYES ARE CONTINUOUSLY MOVING BACK AND FORTH AND SCANNING THE ROOM; HOWEVER, WITH MORE AND AN UPWARD GAZE THAN PURPOSEFUL MOVEMENT. APPEARS VERY ANXIOUS AND IN PAIN. CONTINUES TO GRAB AT LINES/TUBING AND BECOMES VERY ANXIOUS WITH ANY SORT OF MOVEMENT OR WHILE LYING FLAT. OXYGEN SATURATIONS >90%; HOWEVER, PT HAD AN EPISODE WHERE HER HR INCREASES TO 130-140'S, RESP RATE >30, AND OXYGEN SATURATIONS DROP TO 80'S. ORDERS OBTAINED FOR CPAP, DISCONTINUATION OF FLUIDS, AND FENTANYL 12.5-25MCG Q4HR PRN. PT APPEARED MORE RELAXED AFTER 12.5MCG DOSE OF FENTANYL WAS GIVEN, BUT IT WAS SHORT LIVED. SHE ONLY TOLERATED THE CPAP FOR A BRIEF PERIOD OF TIME AND THEN ALSO ATTEMPTED TO PULL CPAP MASK OFF ALSO. PT IS BACK TO HI FLOW NC WITH 5L OF OXYGEN AND APPEARS TO BE MAINTAINING OXYGEN SATURATIONS AT THIS TIME. WILL CONTINUE TO MONITOR. PLAN IS FOR FAMILY, PALLIATIVE CARE, AND BOTH CHIEF OF VITAL STATISTICS AND REGISTRAR ASSISTANT TO DISCUSS TREATMENT PLAN.
[2020-11-25 04:01] LABS: Base Excess Venous -20.8 mmol/L; Bicarbonate Venous 10.3 mmol/L (24.0-30.0); PCO2 Venous 29.1 mmHg (38-42); PO2 Venous 76.6 mmHg (38-42)
[2020-11-25 04:33] LABS: BASOPHILS ABSOLUTE AUTO 0.03 K/mm3 (0.00-0.23); BASOPHILS PERCENT AUTO 0 % (0-2); EOSINOPHILS ABSOLUTE AUTO 0.02 K/mm3 (0.00-0.68); EOSINOPHILS PERCENT AUTO 0 % (0-6); Hematocrit 34.7 % (33.0-51.0); IMMATURE GRAN ABSOLUTE AUTO 0.34 K/mm3 (0.00-0.10); IMMATURE GRAN PERCENT AUTO 3 % (0-1); LYMPHOCYTES ABSOLUTE AUTO 0.45 K/mm3 (0.84-5.20); LYMPHOCYTES PERCENT AUTO 4 % (21-46); MONOCYTES ABSOLUTE AUTO 0.69 K/mm3 (0.16-1.47); MONOCYTES PERCENT AUTO 6 % (4-13); Mean Corpuscular HGB 31.4 pg (26.0-34.0); Mean Corpuscular HGB Conc 34.6 g/dL (31.5-36.5); Mean Corpuscular Volume 91 fL (80-100); Mean Platelet Volume 10.7 fL (9.1-12.4); NEUTROPHILS PERCENT AUTO 88 % (41-73); NRBC ABSOLUTE 0.33 K/mm3 (0.00-0.02); NRBC Auto 2.7 /100 WBC (0.0-0.2); Platelet Count 125 K/mm3 (150-400); RDW Coefficient Variation 18.1 % (11.7-14.2); RDW Standard Deviation 55.2 fL (35.1-46.3); Red Blood Cell Count 3.82 M/mm3 (3.80-5.20); White Blood Cell Count 12.23 K/mm3 (4.00-11.30)
[2020-11-25 04:51] LABS: Anion Gap 19 mmol/L (6-16); Blood Urea Nitrogen 115 mg/dL (8-24); Bun/Creatinine Ratio 18.6 (12.0-20.0); CO2, Blood 11 mmol/L (21-32); Calcium, Blood 6.3 mg/dL (8.5-10.1); Chloride, Blood 108 mmol/L (98-108); Creatinine, Blood 6.18 mg/dL (0.40-1.00); Glomerular Filtration Rate 7 (60-); Glucose, Blood 78 mg/dL (70-99); Potassium, Blood 4.7 mmol/L (3.5-5.5); Sodium, Blood 138 mmol/L (136-145); Vancomycin, Random 20.4 ug/mL
--- NOTE | 2020-11-25 06:36 | NUR ---
CHANGE IN STATUS AROUND 0400 PT'S RESPIRATORY STATUS CHANGED. CRITICAL LABS RESULTED. DR. ECKERT WAS CALLED REGARDING PH OF 7.10, WELL REST OF VBG RESULTS. NEW ORDERS WERE OBTAINED FOR BICARB GTT AT 75MLS/HR AND 4GM OF CALCIUM GLUCONATE IV. AT THIS TIME BP'S WERE SOFT, BUT STABLE. HOWEVER, AROUND 0500 PT WAS HYPOTENSIVE AND LEVOPHED WAS RESTARTED. FAMILY WAS CALLED WITH AN UPDATE REGARDING PT'S CHANGE IN STATUS. FAMILY WAS ASKED TO COME IN WHERE THEY DECIDED TO CHANGE PT'S STATUS AT THAT TIME TO DNR WITH COMFORT CARE MEASURES. DR. ECKERT CALLED AND NOTIFIED OF DECISION MADE BY FAMILY, NEW ORDERS FOR COMFORT CARE MEASURES AND TO CHANGE CODE STATUS TO DNR. LEVOPHED STOPPED AT THIS TIME AND PT WAS THEN SALINE LOCKED. PT MEDICATED WITH ROXONAL FOR AIR HUNGER AND 1MG OF IV ATIVAN FOR ANXIETY. PT APPEARS MORE COMFORTABLE AT THIS TIME; HOWEVER, SHE STILL HAS MODERATE AMOUNTS OF SECRETIONS IN AIRWAY CAUSING A VERY LOUD RATTLING SOUND. SON IS AT BEDSIDE HOLDING PT'S HAND AT THIS TIME. WILL CONTINUE TO MONITOR AND MAKE COMFORTABLE UNTIL REPORT IS HANDED OFF TO ONCOMING RN.
--- NOTE | 2020-11-25 07:30 | NUR ---
ASSUMED CARE REPORT FROM ENRIQUETA COLLINS. SON AT BEDSIDE. PT STATUS CHANGED TO MEDICAL COMFORT CARE THIS AM. PT c GURGLING RESP. EYES CLOSED. DOES NOT APPEAR TO BE IN DISTRESS OR PAIN. PLAN TO MEDICATE FOR PAIN/COMFORT. WILL CONTINUE TO MONITOR.
--- NOTE | 2020-11-25 11:11 | NUR ---
TOD 7769, SON JOSY AT BEDSIDE. TOOK ALL BELONINGS HOME c HIM. PT TRANSFERRED TO [facility]. ALFONSO FROM [facility] TO NOTIFY JOSY.
== END 2020-11-25 12:17 | DRG 871 ==
LOC: ER 14:59 → ICUW 17:52 → ICUE 17:52 → ICUW 11-21 18:23
PROVIDERS: Emergency Medicine; Family Medicine; Internal Medicine; Internal Medicine Critical Care Medicine; Internal Medicine Pulmonary Disease; Pharmacist; Physician Assistant; ADMIT Internal Medicine
PROC: 3E033XZ Introduction of Vasopressor into Peripheral Vein, Percutaneous Approach (ICD-10-PCS; 2020-11-21)
PROC: 5A09357 Assistance with Respiratory Ventilation, Less than 24 Consecutive Hours, Continuous Positive Airway Pressure (ICD-10-PCS; principal; 2020-11-24)
DX: A41.9 Sepsis, unspecified organism (principal); I81 Portal vein thrombosis; R65.21 Severe sepsis with septic shock; G92 Toxic encephalopathy; Z20.822 Contact with and (suspected) exposure to COVID-19; I82.220 Acute embolism and thrombosis of inferior vena cava; N17.0 Acute kidney failure with tubular necrosis; C78.7 Secondary malignant neoplasm of liver and intrahepatic bile duct; C79.51 Secondary malignant neoplasm of bone; N39.0 Urinary tract infection, site not specified; E87.2 Acidosis; C49.21 Malignant neoplasm of connective and soft tissue of right lower limb, including hip; Z51.5 Encounter for palliative care; Z90.12 Acquired absence of left breast and nipple; E66.9 Obesity, unspecified; Z68.34 Body mass index [BMI] 34.0-34.9, adult; E88.09 Other disorders of plasma-protein metabolism, not elsewhere classified; E16.2 Hypoglycemia, unspecified; E83.51 Hypocalcemia; Z87.891 Personal history of nicotine dependence; I27.20 Pulmonary hypertension, unspecified; E83.39 Other disorders of phosphorus metabolism; E55.9 Vitamin D deficiency, unspecified; L27.0 Generalized skin eruption due to drugs and medicaments taken internally; T36.1X5A Adverse effect of cephalosporins and other beta-lactam antibiotics, initial encounter; Y92.230 Patient room in hospital as the place of occurrence of the external cause
CPT/HCPCS: 0241U; 36415; 36600; 51703; 70450; 70551; 71045; 74176; 76705; 80048; 80053; 80069; 80202; 81001; 82140; 82248; 82306; 82330; 82550; 82803; 82947; 83605; 83690; 83735; 83880; 83970; 84100; 84145; 84443; 84484; 84550; 85025; 85610; 87040; 87086; 92610; 93005; 93010; 93306; 93970; 94640; 94660; 94760; 96365; 96375; 99285-25; A9270; C1751; J0610; J0696; J0744; J1200; J1450; J1644; J1650; J1940; J2060; J2270; J2920; J2930; J3010; J3370; J7030; J7040; J7050; J7060; J7070; P9046; P9612